=== PATIENT | female | born 1970 | race African-American/Black ===

== ENCOUNTER 2025-04-13 10:12 | Inpatient (IN) | payer MEDICAID ==
[~2025-04-13] VITALS: Ht 149.9 cm; Wt 135.0 kg
--- NOTE | 2025-04-13 10:31 | ED.PDOC ---
HPI Comments HPI: 54-year-old female presents to the emergency room with a chief complaint of chest pain onset 1 day. Patient has been experiencing sternal chest pain, stabbing sensation, radiating to LT arm and back. Patient was taking a walk yesterday, began experiencing chest pain, worsen today, rates pain 10/10. Denies shortness of breath, dizziness, nausea, vomiting, diarrhea, numbness/tingling, blurry vision, headache. No other symptoms or modifying factors present at this time. Initial Vitals BP: 188/107 HR: 101 RR: 20 O2 Sat: 96% Temperature: 97.3 F Past Medical history: DM, HTN, CHF, Seizures Past Surgical history: tumor removal Medications: labetalol, lisinopril, Keppra Social History: N/A Allergies: NKDA HPI: Poor Historian. REVIEW OF SYSTEMS: CONSTITUTIONAL: Denies acute: fever, diaphoresis, chills, generalized weakness. HEAD: Denies acute: headache, photophobia Eyes: Denies acute: Double vision, vision loss, eye pain, eye discharge. EARS: Denies acute: tinnitus, hearing loss, ear discharge, ear pain, THROAT: Denies acute: sore throat, swelling, difficulty swallowing , pain with swallowing, change in voice. NECK: Denies acute: neck pain, neck swelling, stiff neck. HEART: Denies acute : , palpitations, LUNGS: Denies acute: SOB, wheezing, cough, hemoptysis ABDOMEN: Denies acute: abdominal pain, Nausea, Vomiting, diarrhea, melena , hematemesis, hematochezia SKIN: Denies acute: rash, redness, lesions, itchiness. EXTREMITIES: Denies acute: calf pain, numbness, tingling, weakness, Denies acute: Low back pain. Neuro: Denies acute: focal neurological deficit, motor or sensory focal neurological deficit, tremors, seizure like activity, confusion, dizziness, change in mental status, loss of bowel or bladder function, cauda equina like symptoms. : Denies acute: dysuria, hematuria, flank pain, increase in urinary frequency. PSYCH: Denies acute: hallucination, suicidal ideation, homicidal ideation. FEMALE: Denies acute: abnormal vaginal bleeding, foul odor, unusual discharge. PHYSICAL EXAM: General: ----mild----acute distress, awake and alert. Head: normocephalic, atraumatic. Neck: supple, trachea is midline, no swelling. Throat: Normal phonation. Eyes:, no erythema, no purulent discharge, no proptosis, no icterus. Heart: regular rate, regular rhythm, no significant murmur appreciated. Lungs: no apparent respiratory distress, Able to speak in full sentences. No wheezing, no rhonchi, no crackles. No stridors Clear to auscultation bilaterally. Abdomen: non tender to palpation, non distended, soft, no guarding, no rebound, + bowel sounds. Morbidly obese Neuro: Awake, Alert, oriented to name, self, situation, follows commands GCS=15. Speech is normal. Skin: no petechia, no purpura, no cyanosis, non-pale, not jaundice. Lower extremities: --no - Pitting edema no deformity, no focal swelling, no calf TTP. Makes eye contact. moves all four extremities. Face: no apparent facial droop. Ambulating in the ED independently. ED COURSE: DISCLAIMER: This medical document was created using an electronic medical record system with voice recognition software and computerized dictation system. Although this document has been carefully reviewed, there might still be some phonetic and typographical errors. Occasional wrong-word or "sound-alike" substitutions may have occurred due to the inherent limitations of voice recognition software. These areas are purely typographical due to imperfections of the software programs and do not reflect any compromise in the patient's medical care. Please read the chart carefully and recognize, using context, where these substitutions have occurred. Chief Complaint: Syncope Time Seen by MD: 10:20 Reviewed Notes: Medications, Allergies Allergies: Coded Allergies: Codeine (Verified Allergy, Unknown, 04/13/25) Home Meds Reported Medications Cholecalciferol (Vitamin D-3 Super Strengt) 2,000 Unit Tab, 1 TAB PO DAILY 04/13/25 Olanzapine (OLANZAPINE) 10 Mg Tab, 1 TAB PO 04/13/25 Fluoxetine Hcl (Fluoxetine Hcl) 20 Mg Tab, 1 TAB PO DAILY 04/13/25 Lisinopril (Lisinopril) 10 Mg Tab, 1 TAB PO DAILY 04/13/25 Labetalol Hcl (Labetalol Hcl) 100 Mg Tab, 1 TAB PO BID 04/13/25 Gabapentin (Gabapentin) 300 Mg Cap, 1 CAP PO TID 04/13/25 Information Source: Patient Mode of Arrival: Ambulatory Severity: Moderate Timing: Days Duration: Since onset Prehospital treatment: None Location: Substernal Radiation: Back, Arm (L) Quality: Stabbing Onset: At Rest Cardiac Risk Factors: HTN, Diabetes PE Risk Factors: None History of: None Modifying Factors: Nothing Past Medical History PAST MEDICAL HISTORY: CHF, DM, HTN, Seizures Surgical History (Other): tumor removal ORAL HYGIENIST History: No Pertinent ORAL HYGIENIST History Family History Family History: Reviewed,noncontributory to illness, No family hx of Cancer, No family hx of DM, No family hx of Heart mita, No family hx of HTN, No family hx ofKidney mita, No family hx of Liver mita, No family hx of Lung mita, No family hx of Stroke Social History Smoker: Non-Smoker Alcohol: Denies ETOH Use Drugs: Denies Drug Use Lives In: Home Was a procedure done? Was a procedure done?: No CP Differential Dx Differential Diagnosis: N/A Differential Diagnosis: Other (Ddx include but not limitied to gastritis, musculoskeletal pain, radiculopathy, atypical chest pain, dissection, aneurysm, ACS, unstable angina, hiatal hernia, GERD, anxiety, costochondritis, PE, pneumothroax, neoplasm, cardiac ischemia, drug abuse, anemia.) X-Ray, Labs, Meds, VS Vital Signs Date Time Temp Pulse Resp B/P (MAP) Pulse Ox O2 Delivery O2 Flow Rate FiO2 04/13/25 12:29 98.6 108 16 197/119 (145) 96 98.6 04/13/25 12:29 108 16 96 Room Air 04/13/25 12:15 197/119 04/13/25 11:24 100 04/13/25 10:29 91 04/13/25 10:17 97.3 101 20 188/107 (134) 96 97.3 Lab Test 04/13/25 10:49 04/13/25 10:40 Range/Units Urine Color Yellow Yellow Urine Clarity Clear Clear Urine pH 8.0 5.0-9.0 Urine Specific [place] 1.015 1.001-1.035 Urine Protein Trace H Negative Urine Ketones Negative Negative Urine Blood Negative Negative /uL Urine Nitrite Negative Negative Urine Bilirubin Negative Negative Urine Urobilinogen Normal Negative mg/dL Urine Leukocyte Esterase Negative Negative /uL Urine RBC 1 0 - 4 /hpf Urine Microscopic WBC 1 0-5 /HPF Urine Squamous Epithelial Cells Few <5 /hpf Urine Bacteria Few H None Seen /hpf Urine Mucus Few None Seen Urine Glucose 1+ H Normal mg/dL Urine Test Negative Negative Urine Opiates Screen Neg NEGATIVE Urine Fentanyl Screen Neg NEGATIVE Urine Barbiturates Screen Neg NEGATIVE Urine Phencyclidine Screen Neg NEGATIVE Urine Amphetamines Screen Neg NEGATIVE Urine Benzodiazepines Screen Neg NEGATIVE Urine Cocaine Screen Neg NEGATIVE Urine Cannabinoids Screen Neg NEGATIVE White Blood Count 7.3 4.4-10.8 10^3/uL Red Blood Count 5.11 4.0-5.20 10^6/uL Hemoglobin 13.8 12.2-16.2 g/dL Hematocrit 42.2 36.0-46.0 % Mean Corpuscular Volume 82.6 80.0-100.0 fL Mean Corpuscular Hemoglobin 26.9 L 28.0-32.0 pg Mean Corpuscular Hemoglobin Concent 32.6 32.0-36.0 g/dL Red Cell Distribution Width 17.1 H 11.8-14.3 % Platelet Count 328 140-450 10^3/uL Mean Platelet Volume 8.2 6.9-10.8 fL Neutrophils (%) (Auto) 62.8 37.0-80.0 % Lymphocytes (%) (Auto) 25.2 10.0-50.0 % Monocytes (%) (Auto) 8.4 0.0-12.0 % Eosinophils (%) (Auto) 2.7 0.0-7.0 % Basophils (%) (Auto) 0.9 0.0-2.0 % Neutrophils # (Auto) 4.6 1.6-8.6 10 ^3/uL Lymphocytes # (Auto) 1.8 0.4-5.4 10 ^3/uL Monocytes # (Auto) 0.6 0-1.3 10 ^3/uL Eosinophils # (Auto) 0.2 0-0.8 10 ^3/uL Basophils # (Auto) 0.1 0-0.2 10 ^3/uL Nucleated Red Blood Cells 0.2 % Sodium Level 139 136-145 mmol/L Potassium Level 3.2 L 3.5-5.1 mmol/L Chloride Level 101 98-107 mmol/L Carbon Dioxide Level 29 20-31 mmol/L Anion Gap 9 5-15 Blood Urea Nitrogen 6 L 9-23 mg/dL Creatinine 0.68 0.550-1.02 mg/dL Glomerular Filtration Rate Calc 105 >90 mL/min BUN/Creatinine Ratio 8.8 L 10.0-20.0 Serum Glucose 138 H 74-106 mg/dL Hemoglobin A1c 6.8 H <5.7 % A1C Calcium Level 10.7 H 8.7-10.4 mg/dL Total Bilirubin 0.4 0.2-1.0 mg/dL Aspartate Amino Transferase (AST) 25 <34 U/L Alanine Aminotransferase (ALT) 38 7-40 U/L Alkaline Phosphatase 103 46-116 U/L Troponin I High Sensitivity 11 </=34 ng/L B-Type Natriuretic Peptide 30.61 0-100 pg/mL Total Protein 8.2 5.7-8.2 g/dL Albumin 4.7 3.2-4.8 g/dL Thyroid Stimulating Hormone (TSH) 1.25 0.55-4.78 uIU/mL Current Medications Medications (Trade) Dose Ordered Sig/Linda Route Start Time Stop Time Status Last Admin Aspirin (Ecotrin Enteric Coated Tablet) 325 mg ONCE ONCE PO 04/13/25 10:30 04/13/25 10:31 DC 04/13/25 12:14 Nitroglycerin (Ntrostat Sublingual) 0.4 mg ONCE ONCE SL 04/13/25 10:30 04/13/25 10:31 DC 04/13/25 12:15 [place] [id number] Ph: [phone] DIAGNOSTIC IMAGING Diagnostic Imaging Report : [id number] Signed 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 FINDINGS: Lines and tubes: None Cardiomediastinal silhouette: Prominent Pulmonary vasculature: Prominent Lung expansion: normal Lung airspace: normal Lung interstitium: normal Pleura: normal Pneumothorax: no Bones: Unremarkable Other: no IMPRESSION: No acute intrathoracic abnormality. ATED BY: DAWOOD CHIRINOS MD DICTATED DATE/TIME: 04/13/251210 SIGNED BY: DAWOOD CHIRINOS MD SIGNED DATE/TIME: 04/13/251210 CC: Time of 1ST Reevaluation: 10:50 Reevaluation 1ST: Unchanged Patient Education/Counseling: Diagnosis, Treatment Family Education/Counseling: No Family Present Comments Patient presented with the above HPI.--cardiac----workup was initiated. patient was found with the above mentioned diagnosis. the following medications were ordered: please refer to order lists of meds and tests obtained by myself Dr. Abdi. Patient ED course and VS have been stabilized. Patient has been reassessed in the ED and remained in a stable condition. Pertinent incidental findings were discussed with the patient and/or family. Patient/family voices understanding and is agreeable with plan. Patient has been observed in the ED adequate length of time to insure improvement/stability. Escalation of care considered: Consideration of escalation to observation or admission Patient was given aspirin nitroglycerin and labetalol for blood pressure control. Patient was ADMITTED to the medicine team for further evaluation and treatment of their presentation. All the reports of any imaging studies that were ordered by myself were reviewed by myself. Departure 1 Departure Time of Disposition: 10:39 Impression: Primary Impression: Chest pain Additional Impression: Hypertensive crisis Disposition: ADMITTED INPATIENT Admit to: Tele Condition: Guarded Discharged With: Self Critical Care Note Critical Care Time?: Yes (45 min-critical care time only) Heart Score Heart Score: Heart Score Response (Comments) Value History Moderate Suspicious [address]-Deviation 2 Age 45-64 1 Risk Factors >3 or Hx ASHD 2 Troponin Normal limit 0 Total 6 I personally scribed for MARYELLEN ABDI DO ([email or web address]) on 04/13/25 at 10:31. Electronically submitted by Sury Ruiz ([email or web address]). I personally scribed for MARYELLEN ABDI DO ([email or web address]) on 04/13/25 at 11:06. Electronically submitted by Sury Ruiz ([email or web address]). I personally scribed for MARYELLEN ABDI DO ([email or web address]) on 04/13/25 at 12:42. Electronically submitted by Sury Ruiz ([email or web address]). MARYELLEN ABDI DO Apr 13, 2025 10:31
[2025-04-13 10:56] LABS: Basophils # (auto) 0.1 10 ^3/uL (0-0.2); Eosinophils # (auto) 0.2 10 ^3/uL (0-0.8); Eosinophils % (auto) 2.7 % (0.0-7.0); Lymphocytes # (auto) 1.8 10 ^3/uL (0.4-5.4); Monocytes # (auto) 0.6 10 ^3/uL (0-1.3)
[2025-04-13 10:58] LABS: Basophils % (auto) 0.9 % (0.0-2.0); Hematocrit 42.2 % (36.0-46.0); Hemoglobin 13.8 g/dL (12.2-16.2); Lymphocytes % (auto) 25.2 % (10.0-50.0); Mean Corpuscular Hemoglobin 26.9 pg (28.0-32.0); Mean Corpuscular Hgb Conc. 32.6 g/dL (32.0-36.0); Mean Corpuscular Volume 82.6 fL (80.0-100.0); Monocytes % (auto) 8.4 % (0.0-12.0); Neutrophils # (auto) 4.6 10 ^3/uL (1.6-8.6); Neutrophils % (auto) 62.8 % (37.0-80.0); Nucleated Red Blood Cells % 0.2 %; Platelet Count (auto) 328 10^3/uL (140-450); Red Blood Cells 5.11 10^6/uL (4.0-5.20); Red Cell Distribution Width 17.1 % (11.8-14.3); White Blood Cell 7.3 10^3/uL (4.4-10.8)
[2025-04-13 11:12] LABS: Alanine Aminotransferase 38 U/L (7-40); Albumin 4.7 g/dL (3.2-4.8); Alkaline Phosphatase 103 U/L (46-116); Anion Gap 9 (5-15); Aspartate Aminotransferase 25 U/L (<34); BUN/Creatinine Ratio 8.8 (10.0-20.0); Blood Urea Nitrogen 6 mg/dL (9-23); Calcium 10.7 mg/dL (8.7-10.4); Carbon Dioxide 29 mmol/L (20-31); Chloride 101 mmol/L (98-107); Glucose 138 mg/dL (74-106); Potassium 3.2 mmol/L (3.5-5.1); Sodium 139 mmol/L (136-145); Total Protein 8.2 g/dL (5.7-8.2)
[2025-04-13 11:13] LABS: Bilirubin, Total 0.4 mg/dL (0.2-1.0)
[2025-04-13 11:20] LABS: Amphetamine Screen, Urine Neg (NEGATIVE); Barbiturate Scree,Urine Neg (NEGATIVE); Benzodiazephine Screen, Urine Neg (NEGATIVE); Cannabinoid Screen, Urine Neg (NEGATIVE); Cocaine Screen, Urine Neg (NEGATIVE); Opiate Scree,Urine Neg (NEGATIVE); Phencyclidine Screen, Urine Neg (NEGATIVE)
[2025-04-13] MEDS: ASPirin-EC 325mg tab PO ONE (12:14)
--- NOTE | 2025-04-13 12:14 | DVH ---
XY CHEST PORTABLE, HISTORY: chest pain COMPARISON: None None TECHNICAL DATA: 1 view of the chest was obtained. FINDINGS: Lines and tubes: None Cardiomediastinal silhouette: Prominent Pulmonary vasculature: Prominent Lung expansion: normal Lung airspace: normal Lung interstitium: normal Pleura: normal Pneumothorax: no Bones: Unremarkable Other: no IMPRESSION: No acute intrathoracic abnormality.
[2025-04-13] MEDS: NITROGLYCERIN 0.4 MG SL TAB SL ONE (12:15)
[2025-04-13] MEDS ORDERED: ONDANSETRON HCL 4 MG/2 ML VIAL IV PRN (12:45)
[2025-04-13] MEDS ORDERED: NITROGLYCERIN 0.4 MG SL TAB SL PRN ×2 (12:45)
[2025-04-13] MEDS ORDERED: DEXTROSE (50%) 50ML SYRG IV PRN (12:45)
[2025-04-13] MEDS ORDERED: OLAN1TAB19 PO (12:47)
[2025-04-13] MEDS ORDERED: CHOL20003 PO (12:47)
[2025-04-13] MEDS ORDERED: FLUO20TA42 PO (12:47)
[2025-04-13] MEDS ORDERED: LABE100T7 PO (12:47)
[2025-04-13] MEDS ORDERED: GABA-1250 PO (12:47)
[2025-04-13] MEDS ORDERED: LISI10TA34 PO (12:47)
[2025-04-13] MEDS ORDERED: ALBUTEROL SULF 2.5 MG/0.5ML(0.5%) NEB SOLN NEB PRN (13:00)
[2025-04-13] MEDS ORDERED: HYDROcodone-ACET 5/325MG TAB PO PRN (13:00)
[2025-04-13] MEDS ORDERED: MORPHINE SULFATE INJ 2 MG/ml SYRG IV PRN (13:00)
[2025-04-13] MEDS ORDERED: IPRATROPIUM BROM 0.5 MG/2.5ML INH SOL NEB PRN (13:00)
[2025-04-13 13:02] LABS: Urine Bacteria FEW /hpf (None Seen); Urine Blood Negative /uL (Negative); Urine Clarity Clear (Clear); Urine Color Yellow (Yellow); Urine Mucus FEW (None Seen); Urine Protein, UAD TRACE (Negative); Urine Specific Gravity 1.015 (1.001-1.035); Urine Squamous Epithelial Cell FEW /hpf (<5); Urine Urobilinogen Normal (Negative); Urine WBC 1 /HPF (0-5)
--- NOTE | 2025-04-13 13:06 | DVHHP2 ---
History of Present Illness Reason for Visit: Chest pain History of Present Illness Jennifer Wells is a 54-year-old female with past medical history of hypertension, diabetes, CHF, seizures, and abdominal tumor removal in 2002 who presents to the ED with chest pain that started yesterday. Patient states that the pain started before she was exercising and endorses that the pain is 10/10 stabbing like and intermittent. She states it does not radiate anywhere. She reports there are no triggering factors. Patient endorses that she lives with her family, her Yonatan and son González at the chair side. They stated that she took some medications and it may have triggered the chest pain. Patient reports that when she lifts up her left arm the pain is slightly relieved however there is no relief while doing that. Patient denies any shortness of breath, fever, chills, lightheadedness, weakness, dizziness, recent trauma or injury, recent sick contacts, recent travels, recent ingestion of spoiled food, abdominal pain, nausea, vomiting, or diarrhea. 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 Endocrine: Diabetes Past Surgical History: Other (Abdominal tumor removal in 2002) Family History: None Smoke: No ALCOHOL: none Drugs: None Lives: with Family Domestic Violence: Neg Review of Systems Cardiovascular: Chest Pain Allergies: Coded Allergies: Codeine (Verified Allergy, Unknown, 04/13/25) Medications Current Medications Medications Dose Ordered Sig/Linda Route Start Time Stop Time Status Last Admin Dose Admin Aspirin 81 mg DAILY PO 04/14/25 10:00 UNV Atorvastatin Calcium 40 mg HS PO 04/13/25 22:00 UNV Acetaminophen 650 mg Q6HP PRN PO 04/13/25 12:45 UNV Nitroglycerin 0.4 mg Q5MINP PRN SL 04/13/25 12:45 UNV Ondansetron HCl 4 mg Q4HP PRN IV 04/13/25 12:45 UNV Nitroglycerin 0.4 mg Q5MINP PRN SL 04/13/25 12:45 UNV Diagnostic Test (Pha) 1 strip ACHS 04/13/25 17:00 UNV Insulin Human Regular ACHS SC 04/13/25 17:00 UNV Dextrose 50 ml UD PRN IV 04/13/25 12:45 UNV Exam Vital Signs Vital Signs Date Time Temp Pulse Resp B/P (MAP) Pulse Ox O2 Delivery O2 Flow Rate FiO2 04/13/25 12:29 98.6 108 16 197/119 (145) 96 98.6 04/13/25 12:29 Room Air General Appearance: Alert, Oriented X3, Cooperative, No acute distress HEENT: Atraumatic, PERRLA, EOMI, Mucous membr. moist/pink Respiratory: Normal air movement Cardiovascular: Normal S1, Normal S2 Abdominal: Normal bowel sounds, Soft Extremities: No clubbing, No cyanosis, Normal pulses Skin: No significant lesion Neuro: Normal gait, Normal speech, Strength at 5/5 X4 ext, Normal tone, Sensation intact Psych/Mental Status: Mental status NL, Mood NL Labs/Xrays Labs Test 04/13/25 10:49 04/13/25 10:40 Range/Units Urine Test Negative Negative Urine Opiates Screen Neg NEGATIVE Urine Fentanyl Screen Neg NEGATIVE Urine Barbiturates Screen Neg NEGATIVE Urine Phencyclidine Screen Neg NEGATIVE Urine Amphetamines Screen Neg NEGATIVE Urine Benzodiazepines Screen Neg NEGATIVE Urine Cocaine Screen Neg NEGATIVE Urine Cannabinoids Screen Neg NEGATIVE White Blood Count 7.3 4.4-10.8 10^3/uL Red Blood Count 5.11 4.0-5.20 10^6/uL Hemoglobin 13.8 12.2-16.2 g/dL Hematocrit 42.2 36.0-46.0 % Mean Corpuscular Volume 82.6 80.0-100.0 fL Mean Corpuscular Hemoglobin 26.9 L 28.0-32.0 pg Mean Corpuscular Hemoglobin Concent 32.6 32.0-36.0 g/dL Red Cell Distribution Width 17.1 H 11.8-14.3 % Platelet Count 328 140-450 10^3/uL Mean Platelet Volume 8.2 6.9-10.8 fL Neutrophils (%) (Auto) 62.8 37.0-80.0 % Lymphocytes (%) (Auto) 25.2 10.0-50.0 % Monocytes (%) (Auto) 8.4 0.0-12.0 % Eosinophils (%) (Auto) 2.7 0.0-7.0 % Basophils (%) (Auto) 0.9 0.0-2.0 % Neutrophils # (Auto) 4.6 1.6-8.6 10 ^3/uL Lymphocytes # (Auto) 1.8 0.4-5.4 10 ^3/uL Monocytes # (Auto) 0.6 0-1.3 10 ^3/uL Eosinophils # (Auto) 0.2 0-0.8 10 ^3/uL Basophils # (Auto) 0.1 0-0.2 10 ^3/uL Nucleated Red Blood Cells 0.2 % Sodium Level 139 136-145 mmol/L Potassium Level 3.2 L 3.5-5.1 mmol/L Chloride Level 101 98-107 mmol/L Carbon Dioxide Level 29 20-31 mmol/L Anion Gap 9 5-15 Blood Urea Nitrogen 6 L 9-23 mg/dL Creatinine 0.68 0.550-1.02 mg/dL Glomerular Filtration Rate Calc 105 >90 mL/min BUN/Creatinine Ratio 8.8 L 10.0-20.0 Serum Glucose 138 H 74-106 mg/dL Calcium Level 10.7 H 8.7-10.4 mg/dL Total Bilirubin 0.4 0.2-1.0 mg/dL Aspartate Amino Transferase (AST) 25 <34 U/L Alanine Aminotransferase (ALT) 38 7-40 U/L Alkaline Phosphatase 103 46-116 U/L Troponin I High Sensitivity 11 </=34 ng/L B-Type Natriuretic Peptide 30.61 0-100 pg/mL Total Protein 8.2 5.7-8.2 g/dL Albumin 4.7 3.2-4.8 g/dL XY CHEST PORTABLE, HISTORY: chest pain COMPARISON: None None TECHNICAL DATA: 1 view of the chest was obtained. FINDINGS: Lines and tubes: None Cardiomediastinal silhouette: Prominent Pulmonary vasculature: Prominent Lung expansion: normal Lung airspace: normal Lung interstitium: normal Pleura: normal Pneumothorax: no Bones: Unremarkable Other: no IMPRESSION: No acute intrathoracic abnormality. Assessment/Plan Assessment/Plan Assessment Chest pain rule out ACS Hypertensive urgency Hypokalemia History of hypertension History of diabetes type 2 History of CHF History of seizures History abdominal tumor removal in 2002 Plan Admit to [facility] Duo nebs Replete lytes Beta-blockers given in ED Nitro given ED Aspirin + statin Antiemetics Pain management UDS BNP Chest x-ray Troponin noted EKG Hemoglobin A1c ISS and Accu-Cheks Strict I&Os Daily weight Echo ordered UA UDS TSH Lipid Duo nebs Diet Home medications reconciled DVT prophylaxis-not indicated patient ambulating PUD prophylaxis-not indicated no history of GERD or GI bleed Discussed plan of care with patient, patient's spouse, patient's son, and nurse Plan discussed with: Patient, Spouse, Son My Orders Orders - PAULINO ZHENG PAD EXTRACTION TENDER Procedure Category Date Status Time Potassium Er Tablet PHA 04/13/25 Logged (Klor-Con Tablet) 12:45 Admit ADMIT 04/13/25 Transmitted 12:42 Code Status CODE 04/13/25 Transmitted 12:42 Vital Signs REBEKA 04/13/25 In Process 12:42 Assembly Mechanic REBEKA 04/13/25 In Process 12:42 Aspirin Tablet PHA 04/14/25 Logged 10:00 Atorvastatin (Lipitor) PHA 04/13/25 Logged 22:00 Acetaminophen Tablet PHA 04/13/25 Logged (Tylenol Tablet) 12:45 Complete Blood Count LAB 04/14/25 Verified 04:00 Basic Metabolic Panel LAB 04/14/25 Verified 04:00 Magnesium LAB 04/14/25 Verified 04:00 Lipid Panel LAB 04/14/25 Verified 04:00 Echo 2d Mode Cardiac US 04/13/25 Logged DOP 12:42 Nitroglycerin PHA 04/13/25 Logged Sublingual (Ntrostat 12:45 Ondansetron Hcl PHA 04/13/25 Logged (Zofran) 12:45 Electrocardigram EKG 04/14/25 Logged 04:00 Cardiac REBEKA 04/13/25 In Process Rehabilitation - Outpa Nitroglycerin PHA 04/13/25 Logged Sublingual (Ntrostat 12:45 Stat Ekg For Chest REBEKA 04/13/25 In Process Pain 12:42 Notify Of Changes [facility] 04/13/25 In Process From Base 12:42 Unscrambler For REBEKA 04/13/25 In Process 24 Hours 12:42 Emergency Dysrhythmia REBEKA 04/13/25 In Process Protocol 12:42 Rhythm Strips Once REBEKA 04/13/25 In Process Every Shift 12:42 Oxygen By Nasal RT 04/13/25 Transmitted Cannula 12:42 Urinalysis LAB 04/13/25 Logged 12:42 Drug Screen LAB 04/13/25 Logged 12:42 Thyroid Stimulating LAB 04/13/25 Logged Hormone 12:42 Cardiac DIET 04/13/25 Transmitted Diet-2gna,Lofat,Lochol Lunch Hemoglobin A1c LAB 04/13/25 Logged 12:45 Glucose Blood PHA 04/13/25 Logged (Accu-Chek Comfort 17:00 Insulin R (Human) PHA 04/13/25 Logged (Insulin R) 17:00 Dextrose 50% Syringe PHA 04/13/25 Logged 12:45 Strict I & O REBEKA 04/13/25 In Process 12:46 Daily Weight REBEKA 04/13/25 In Process 12:46 Gabapentin Capsule PHA 04/13/25 Verified (Neurontin Capsule) 14:00 (Nf) Cholecalciferol PHA 04/14/25 Verified (Vitamin D-3 Super 10:00 (Nf) Fluoxetine Hcl PHA 04/14/25 Verified 10:00 (Nf) Labetalol Hcl PHA 04/13/25 Verified 22:00 (Nf) Lisinopril PHA 04/14/25 Verified 10:00 Olanzapine Tablet PHA 04/13/25 Verified (Zyprexa Tablet) 13:00 Date of Service: Apr 13, 2025 Billing Provider: PAULINO ZHENG Common Visit Codes: [id number] INP/OBS CARE (HIGH) PAULINO ZHENG Apr 13, 2025 13:06
[2025-04-13] MEDS: LABETALOL HCL 20 MG/4 ML VL IV ONE (13:44)
[2025-04-13] MEDS: OLANZapine 5 MG TAB PO SCH (13:44)
[2025-04-13] MEDS: POTASSIUM CHL 20 Meq TABLET PO ONE (13:47)
[2025-04-13] MEDS: ACETAMINOPHEN 325 MG TAB PO PRN (13:48)
[2025-04-13] MEDS: hydrALAZINE HCL 20 MG/ML VL IV PRN (13:58)
[2025-04-13] MEDS: GABAPENTIN 300 MG CAP PO SCH (14:00)
[2025-04-13 15:10] VITALS: BP 185/128; PULSE 108; RESP 20; O2SAT 94
[2025-04-13] MEDS: ACCU-CHEK COMFORT CURVE STRIP VI SCH (17:00)
[2025-04-13] MEDS: InsuLIN REG 1unit/0.01ml Soln (100units/ml) SC SCH (17:00)
[2025-04-13 18:22] VITALS: O2SAT 94
--- NOTE | 2025-04-13 19:17 | ECG ---
[facility] Test Date: 2025-04-13 Test Time: 13:18:14 Pat Name: CEDRIC MILLER Department: ED Room: [facility] Gender: F Community Health Specialist: pete : 1970 Requested By: TJ CA Order Number: [id number] Reading MD: Pop Zuniga Measurements Intervals [place] Rate: 107 P: 53 RI: 132 QRS: 10 QRSD: 96 T: 172 QT: 358 QTc: 478 Interpretive Statements Sinus tachycardia Consider right atrial enlargement Left ventricular hypertrophy Nonspecific T abnormalities, lateral leads Baseline wander in lead(s) I,II,aVR,V2,V3,V4,V5,V6 Electronically Signed On 04-13-2025 21:20:03 PDT by Pop Zuniga Please click the below link to view image of tracing.
[2025-04-13] MEDS: MORPHINE SULFATE 4 MG/ML SYR/VIAL IV PRN (19:32)
--- NOTE | 2025-04-13 19:42 | ECG ---
[facility] Test Date: 2025-04-13 Test Time: 19:33:59 Pat Name: CEDRIC MILLER [facility] Gender: F Service Sprinkler Helper: [id number] : 1970 Requested By: TJ CA Order Number: [id number] Reading MD: Pop Zuniga Measurements Intervals [place] Rate: 105 P: 65 WV: 157 QRS: 10 QRSD: 105 T: 34 QT: 385 QTc: 509 Interpretive Statements Sinus tachycardia Right atrial enlargement Left ventricular hypertrophy Borderline prolonged QT interval Baseline wander in lead(s) V1,V2 Electronically Signed On 04-13-2025 21:12:47 PDT by Pop Zuniga Please click the below link to view image of tracing.
[2025-04-13 21:00] VITALS: BP 108/102; PULSE 95; RESP 18; TEMP 97.5; O2SAT 92
[2025-04-13] MEDS: ATORVASTATIN 20 MG TAB PO SCH (21:35)
[2025-04-13] MEDS: LABETALOL HCL 200 MG TAB PO SCH (21:36)
[2025-04-13] MEDS ORDERED: ATORVASTATIN 20 MG TAB PO SCH (22:00)
[2025-04-13] MEDS ORDERED: LABETALOL HCL PO SCH (22:00)
[2025-04-13 22:50] VITALS: RESP 18
[2025-04-13] MEDS: MORPHINE SULFATE INJ 2 MG/ml SYRG IV PRN (22:59)
[2025-04-14] VITALS (7 sets, daily range): BP systolic 120–182; BP diastolic 85–100; PULSE 70–100; RESP 17–20; TEMP 36.5; O2SAT 90–100
[2025-04-14] MEDS ORDERED: IBUP-1453 PO (03:35)
--- NOTE | 2025-04-14 06:34 | ECG ---
[facility] Test Date: 2025-04-13 Test Time: 10:28:03 Pat Name: CEDRIC MILLER Department: ER Room: 0273T Gender: F Support Merchandiser: FREDI : 1970 Requested By: TJ CA Order Number: [id number] Reading MD: Measurements Intervals [place] Rate: 98 P: 66 CA: 129 QRS: 47 QRSD: 100 T: -35 QT: 397 QTc: 507 Interpretive Statements Sinus rhythm Right atrial enlargement Probable LVH with secondary repol abnrm Borderline prolonged QT interval Baseline wander in lead(s) I,II,III,aVR,aVL,V1,V2 Please click the below link to view image of tracing.
[2025-04-14 08:09] LABS: Eosinophils # (auto) 0.2 10 ^3/uL (0-0.8); Mean Corpuscular Volume 81.8 fL (80.0-100.0); Monocytes # (auto) 0.6 10 ^3/uL (0-1.3); Nucleated Red Blood Cells % 0.2 %
[2025-04-14 08:14] LABS: Basophils # (auto) 0 10 ^3/uL (0-0.2); Basophils % (auto) 0.5 % (0.0-2.0); Eosinophils % (auto) 2.6 % (0.0-7.0); Hematocrit 38.7 % (36.0-46.0); Hemoglobin 12.7 g/dL (12.2-16.2); Lymphocytes % (auto) 25.8 % (10.0-50.0); Mean Corpuscular Hemoglobin 26.8 pg (28.0-32.0); Mean Corpuscular Hgb Conc. 32.8 g/dL (32.0-36.0); Monocytes % (auto) 8.5 % (0.0-12.0); Neutrophils # (auto) 4.8 10 ^3/uL (1.6-8.6); Neutrophils % (auto) 62.6 % (37.0-80.0); Platelet Count (auto) 338 10^3/uL (140-450); Red Blood Cells 4.73 10^6/uL (4.0-5.20); Red Cell Distribution Width 17.3 % (11.8-14.3); White Blood Cell 7.6 10^3/uL (4.4-10.8)
[2025-04-14 08:21] LABS: Chloride 102 mmol/L (98-107); Potassium 3.6 mmol/L (3.5-5.1); Sodium 141 mmol/L (136-145)
[2025-04-14 08:22] LABS: Anion Gap 11 (5-15); Calcium 10.4 mg/dL (8.7-10.4); Carbon Dioxide 28 mmol/L (20-31)
[2025-04-14 08:28] LABS: BUN/Creatinine Ratio 19.7 (10.0-20.0); Blood Urea Nitrogen 15 mg/dL (9-23); Glucose 122 mg/dL (74-106); Triglycerides 240 mg/dL (< 150)
[2025-04-14 08:29] LABS: Cholesterol 164 mg/dL (< 200)
[2025-04-14 08:30] LABS: HDL Cholesterol 32 mg/dL (40-59); LDL Cholesterol 114 mg/dL (< 100)
[2025-04-14] MEDS: ASPirin 81 mg TAB PO SCH (09:50)
[2025-04-14] MEDS: CHOLECALCIFEROL (VITD3) 1,000UNIT=25mCg TAB PO SCH (09:51)
[2025-04-14] MEDS: FLUoxetine HCL 20 MG CAP PO SCH (09:51)
[2025-04-14] MEDS: LISINOPRIL 5 MG TAB PO SCH (09:52)
[2025-04-14] MEDS ORDERED: PATIENTS OWN MEDICATION (Cholecalciferol (Vitamin D-3 Super Strengt) 1 TAB) PO SCH (10:00)
[2025-04-14] MEDS ORDERED: PATIENTS OWN MEDICATION (Fluoxetine Hcl 1 TAB) PO SCH (10:00)
[2025-04-14] MEDS ORDERED: ASPirin 81 mg TAB PO SCH (10:00)
[2025-04-14] MEDS ORDERED: PATIENTS OWN MEDICATION (Lisinopril 1 TAB) PO SCH (10:00)
--- NOTE | 2025-04-14 12:54 | DVHDS2 ---
Discharge Summary Date of Admission Apr 13, 2025 at 12:42 Date of Discharge: Apr 14, 2025 Admitting Diagnosis Chest pain Labs/Diagnostic Data: Laboratory Results Test 04/14/25 12:37 04/14/25 07:35 04/13/25 13:42 04/13/25 10:49 POC Glucose 124 mg/dl (70-106) White Blood Count 7.6 10^3/uL (4.4-10.8) Red Blood Count 4.73 10^6/uL (4.0-5.20) Hemoglobin 12.7 g/dL (12.2-16.2) Hematocrit 38.7 % (36.0-46.0) Mean Corpuscular Volume 81.8 fL (80.0-100.0) Mean Corpuscular Hemoglobin 26.8 pg (28.0-32.0) Mean Corpuscular Hemoglobin Concent 32.8 g/dL (32.0-36.0) Red Cell Distribution Width 17.3 % (11.8-14.3) Platelet Count 338 10^3/uL (140-450) Mean Platelet Volume 8.1 fL (6.9-10.8) Neutrophils (%) (Auto) 62.6 % (37.0-80.0) Lymphocytes (%) (Auto) 25.8 % (10.0-50.0) Monocytes (%) (Auto) 8.5 % (0.0-12.0) Eosinophils (%) (Auto) 2.6 % (0.0-7.0) Basophils (%) (Auto) 0.5 % (0.0-2.0) Neutrophils # (Auto) 4.8 10 ^3/uL (1.6-8.6) Lymphocytes # (Auto) 2.0 10 ^3/uL (0.4-5.4) Monocytes # (Auto) 0.6 10 ^3/uL (0-1.3) Eosinophils # (Auto) 0.2 10 ^3/uL (0-0.8) Basophils # (Auto) 0 10 ^3/uL (0-0.2) Nucleated Red Blood Cells 0.2 % Sodium Level 141 mmol/L (136-145) Potassium Level 3.6 mmol/L (3.5-5.1) Chloride Level 102 mmol/L (98-107) Carbon Dioxide Level 28 mmol/L (20-31) Anion Gap 11 (5-15) Blood Urea Nitrogen 15 mg/dL (9-23) Creatinine 0.76 mg/dL (0.550-1.02) Glomerular Filtration Rate Calc 94 mL/min (>90) BUN/Creatinine Ratio 19.7 (10.0-20.0) Serum Glucose 122 mg/dL (74-106) Calcium Level 10.4 mg/dL (8.7-10.4) Magnesium Level 2.0 mg/dL (1.6-2.6) Triglycerides Level 240 mg/dL (< 150) Cholesterol Level 164 mg/dL (< 200) LDL Cholesterol 114 mg/dL (< 100) HDL Cholesterol 32 mg/dL (40-59) Troponin I High Sensitivity 14 ng/L (</=34) Urine Color Yellow (Yellow) Urine Clarity Clear (Clear) Urine pH 8.0 (5.0-9.0) Urine Specific [place] 1.015 (1.001-1.035) Urine Protein Trace (Negative) Urine Ketones Negative (Negative) Urine Blood Negative /uL (Negative) Urine Nitrite Negative (Negative) Urine Bilirubin Negative (Negative) Urine Urobilinogen Normal mg/dL (Negative) Urine Leukocyte Esterase Negative /uL (Negative) Urine RBC 1 /hpf (0 - 4) Urine Microscopic WBC 1 /HPF (0-5) Urine Squamous Epithelial Cells Few /hpf (<5) Urine Bacteria Few /hpf (None Seen) Urine Mucus Few (None Seen) Urine Glucose 1+ mg/dL (Normal) Urine Test Negative (Negative) Urine Opiates Screen Neg (NEGATIVE) Urine Fentanyl Screen Neg (NEGATIVE) Urine Barbiturates Screen Neg (NEGATIVE) Urine Phencyclidine Screen Neg (NEGATIVE) Urine Amphetamines Screen Neg (NEGATIVE) Urine Benzodiazepines Screen Neg (NEGATIVE) Urine Cocaine Screen Neg (NEGATIVE) Urine Cannabinoids Screen Neg (NEGATIVE) Test 04/13/25 10:40 Hemoglobin A1c 6.8 % A1C (<5.7) Total Bilirubin 0.4 mg/dL (0.2-1.0) Aspartate Amino Transferase (AST) 25 U/L (<34) Alanine Aminotransferase (ALT) 38 U/L (7-40) Alkaline Phosphatase 103 U/L (46-116) B-Type Natriuretic Peptide 30.61 pg/mL (0-100) Total Protein 8.2 g/dL (5.7-8.2) Albumin 4.7 g/dL (3.2-4.8) Thyroid Stimulating Hormone (TSH) 1.25 uIU/mL (0.55-4.78) Other Laboratory Tests 04/14/25 07:35 Brief Hx & Hospital Course: History of Present Illness Jennifer Wells is a 54-year-old female with past medical history of hypertension, diabetes, CHF, seizures, and abdominal tumor removal in 2002 who presents to the ED with chest pain that started yesterday. Patient states that the pain started before she was exercising and endorses that the pain is 10/10 stabbing like and intermittent. She states it does not radiate anywhere. She reports there are no triggering factors. Patient endorses that she lives with her family, her Yonatan and son González at the chair side. They stated that she took some medications and it may have triggered the chest pain. Patient reports that when she lifts up her left arm the pain is slightly relieved however there is no relief while doing that. Patient denies any shortness of breath, fever, chills, lightheadedness, weakness, dizziness, recent trauma or injury, recent sick contacts, recent travels, recent ingestion of spoiled food, abdominal pain, nausea, vomiting, or diarrhea. Course of hospitalization: Patient was noted to be severely hypertensive upon admission. Patient was started on p.o. antihypertensives with her chest pain resolving. Troponins has been negative x3. EKG without any ST changes. Patient was no longer reporting chest pain. Patient is noted to be somewhat somnolent , but easily awakens and follows commands. According to the family, they feel that her psychiatric medications for schizoaffective disorder cause her to be too sleepy. Patient was agreeable to be discharged home. She will follow up with her PCP in 1-2 weeks and is instructed to follow up with her psychiatrist regarding possible lowering of her olanzapine. Patient and family are agreeable to this discharge plan. All questions answered. Physical examination General: Alert and Oriented x3. No acute distress. Well-nourished. Eyes: EOMI. Anicteric. HENT: Moist mucous membranes. Lungs: Clear to auscultation bilaterally. No accessory muscle use. Cardiovascular: Regular rate and rhythm. No murmur. No JVD. Abdomen: Soft, non-tender and non-distended. No palpable masses. Extremities: No edema. Non-tender. Skin: No rashes or lesions. Warm. Neurologic: No focal neurological deficits. CN II-XII grossly intact, but not individually tested. Psychiatric: Cooperative. Appropriate mood and affect. Total time spent with patient discussing and formulating plan of care: 35 minutes. This medical document was created using an electronic medical record system with [employer] dictation system. Although this document has been carefully reviewed, there may still be some phonetic and typographical errors. These areas are purely typographical due to imperfections of the software programs, and do not reflect any compromise in the patient's medical care. Condition at Discharge: Guarded Final Diagnosis/Problems List Chest pain due to hypertensive urgency Secondary diagnosis: Dyslipidemia Primary hypertension ACS ruled out Schizoaffective disorder Obesity Discharge Disposition: Home Discharge Instruct/Medications Diet: Cardiac 2g Na,low cholest Activity: No Restrictions, As Tolerated Follow Up/Referral: Follow up with PCP in 1-2 weeks , Dr. Antoine Follow up with psychiatrist regarding possible over medication with the olanzapine causing lethargy Medications: Continue all home medications 36 Discharge Statement: "Patient was advised to return to the ER or call 911 if any headaches, dizziness, shortness of breath, chest pain, abdominal pain, bleeding, fevers, or worsening of medical condition. Patient was counseled about treatment plan, medications, possible side effects, patientverbalized understanding. All questions were answered to the best of my ability. This discharge took greater then 30 minutes in planning, reviewing documentation, counseling the patient, and discussing with other team members." ASSESSMENT ASSESSMENT Assessment Chest pain due to hypertensive urgency Date of Service: Apr 14, 2025 Billing Provider: ROBER CALI NP Common Visit Codes: 91758-OBS/OBS DISCH DAY >30min ROBER CALI NP Apr 14, 2025 12:54
== END 2025-04-14 15:40 | disposition home or self-care (01) | DRG 199 ==
LOC: ER 10:12 → OVERFLOW 12:42 → TELE-WESTW 18:41
DX: I16.0 Hypertensive urgency (principal); F25.9 Schizoaffective disorder, unspecified; I50.9 Heart failure, unspecified; E87.6 Hypokalemia; I11.0 Hypertensive heart disease with heart failure; E78.5 Hyperlipidemia, unspecified; E66.9 Obesity, unspecified; E11.9 Type 2 diabetes mellitus without complications; Z88.5 Allergy status to narcotic agent; Z68.44 Body mass index [BMI] 60.0-69.9, adult; Z79.899 Other long term (current) drug therapy
CPT/HCPCS: 36415; 71045; 80048; 80053; 80061; 80307; 81001; 81025; 82962; 83036; 83735; 83880; 84443; 84484; 85025; 93005; 96374; 99291; G0378; J1815